=== PATIENT | female | born 1950 | race Caucasian/White ===

== ENCOUNTER 2016-05-31 09:41 | Inpatient (IN) | payer MEDICARE, BC ==
[~2016-05-31] VITALS: Ht 172.7 cm; Wt 133.0 kg
--- NOTE | ~2016-05-31 | OR ---
ADMIT: 05/31/2016 RM/LOC: 528 [facility] MR#: [id number] [address] [address] LIZA ASHLEY [address] [place] [address] Operative/Delivery Room Report SEX: F AGE: 65 : 1950 SURGERY DATE: 06/07/2016 SURGEON: Shane Wiley MD PREPROCEDURE DIAGNOSIS: Small bowel obstruction. POSTPROCEDURE DIAGNOSIS: Small bowel obstruction. PROCEDURE: Exploratory laparotomy with lysis of adhesions and segmental small bowel resection. INDICATIONS: The patient is morbidly obese, 65-year-old female, had multiple previous laparotomies who presents with signs, symptoms, and radiographic evidence of small bowel obstruction. She has failed conservative therapy who presents for exploratory laparotomy. FINDINGS: The patient was taken to the operating room, general endotracheal anesthesia was induced. The patient's abdomen was prepped and draped in normal sterile fashion. The case was begun by making a vertical midline skin incision over the previous midline incision using a #10 blade. Dissection was carried down through the subcutaneous fat, fascia, previously placed mesh, and peritoneum using electrocautery and Doe scissor dissection, this was a very difficult tedious dissection with very dense small bowel adhesions to the undersurface of the anterior abdominal wall. We were able to find clearly the evidence of bowel obstruction right underneath the undersurface of the anterior abdominal wall adjacent to the mesh. As we took this down we could clearly see very obviously decompressed small bowel loops and very distended dilated bowel loops proximally. There was a very tight adhesion band which we took down. There were some enterotomies, serotomies in this area trying to get this taking down. We continued this dissection more proximally until I was convinced there was no further obstructive pathology. Again, this was a very tedious and difficult dissection. There was a small amount of spillage of succus entericus. I elected to remove this small area of adhesional obstruction and serotomy and enterotomy doing a small bowel resection by dividing the small bowel proximally and distally with the 75 JEREMIAH stapler, took down the mesentery between clamps and 0 Vicryl ties. To decompress the proximal small bowel loops, I made an enterotomy in the antimesenteric staple line and a large amount of succus entericus that we suctioned out but it looked basically caused or promoted the obstruction with very large amount of nondigestible food product that were basically just eviscerated and dumped into a bowl as it had brought partially obstructing lesion to a fully obstructing lesion with this nondigestible material. We removed it before, we did our anastomosis and then we created a [id number] stapled anastomosis with a 75 JEREMIAH stapler, closed the common enterotomy with a single firing of the 75 JEREMIAH stapler. We reinforced the apex of this stapled anastomosis with interrupted 3-0 silk seromuscular suture and then I over sewed the common enterotomy staple line with a running 3-0 silk seromuscular suture. I closed ADMIT: 05/31/2016 RM/LOC: 528 [facility] MR#: [id number] [address] [place] [id number] [place] [address] Operative/Delivery Room Report SEX: F AGE: 65 : 1950 down the small mesenteric defect with a running 3-0 silk suture. The small bowel resected segment measured probably only about 8 to 10 cm in total length. I then irrigated the abdomen and pelvis with 3 L of warm saline until the irrigant was nice and clear. There appeared to be no further pathology. I did not dissect out some of the more proximal friendly adhesions as afraid a bowel injury with trying to do this dissection as she had very dense adhesions throughout. I then closed the wound with running #1 PDS looped suture and reinforced this closure with interrupted single stranded [id number] #1 PDS suture. We irrigated the subcu space and closed the skin with interrupted skin neal. The wound was cleaned and dried and dressed. The patient tolerated the procedure without difficulty, was extubated and wheeled to recovery room in good condition. Shane Wiley MD/ ramu JOB #: [id number] CC: Aria Collier, Attending Physician Aria Collier, Family Physician
--- NOTE | ~2016-05-31 | ER ---
ADMIT: 05/31/2016 RM/LOC: 528 [facility] MR#: [id number] [address] [address] KRZYSZTOF ASHLEYE [address] [place], [place] [address] Emergency Room Report SEX: F AGE: 65 : 1950 DATE: 05/31/2016 ADDENDUM: In my previous dictation, I wrote that the patient had a history of having stomach cancer and that was an error. ORTIZ Gant / Mo Dunn MD / ramu JOB #: [id number] CC: Aria Collier MD, Attending Physician Aria Collier MD, Family Physician
--- NOTE | ~2016-05-31 | HP ---
ADMIT: 05/31/2016 RM/LOC: 528 [facility] MR#: [id number] [address] [address] LIZA ASHLEY [address] [place] [address] Pre-OP History and Physical SEX: F AGE: 65 : 1950 DATE OF SERVICE: 05/31/2016 HISTORY OF PRESENT ILLNESS: The patient is a morbidly obese, 65-year-old female, who has had gastric bypass years ago. I believe had it ultimately reversed. She has had hiatal hernia repairs and abdominal wall hernia repairs in the past. She presented with nausea, vomiting, decreased bowel function. Her bowels were working well prior to her admission. PAST MEDICAL HISTORY: Outlined in Mo Marr's note. SURGICAL HISTORY: Outlined in Mo Marr's note. ALLERGIES: OUTLINED IN MO MARR'S NOTE. MEDICATIONS: Outlined in Mo Marr's note. FAMILY HISTORY: Outlined in Mo Marr's note. SOCIAL HISTORY: Outlined in Mo Marr's note. REVIEW OF SYSTEMS: Outlined in Mo Marr's note. PHYSICAL EXAMINATION: GENERAL: She is obese. VITAL SIGNS: Afebrile. HEART: Regular. LUNGS: Clear. ABDOMEN: Soft, distended, and mildly tender to deep palpation with no peripheral edema. No focal neurologic deficits. DIAGNOSTIC DATA: Her CT scan revealed a small bowel obstruction with the distal small bowel transition point. ASSESSMENT AND PLAN: The patient is an obese, 65-year-old female with signs, symptoms, and radiographic evidence consistent with small bowel obstruction. Due to her obesity and previous multiple abdominal surgeries, we are going to place an NG tube, bowel rest, and hope for a conservative management. If no improvement, may ultimately need surgical laparotomy. Shane Wiley MD/ ramu JOB #: [id number] CC: Aria Collier, Attending Physician Aria Collier, Family Physician
--- NOTE | 2016-06-06 10:44 | CO ---
ADMIT: 05/31/2016 RM/LOC: 528 [facility] MR#: [id number] [address] [address] LIZA ASHLEY [address] [place] [address] Consultation SEX: F AGE: 65 : 1950 DATE OF CONSULTATION: 06/01/2016 ATTENDING PHYSICIAN: Aria Collier CONSULTING PHYSICIAN: Sukhdev Call MD REASON FOR CONSULTATION: Acute kidney injury. HISTORY OF PRESENT ILLNESS: The patient is a pleasant 65-year-old female, who presented to the hospital yesterday with a chief complaint of vomiting for about a couple days prior to presentation. She denies any fevers, chills, or rigors. Denies any diarrhea. She had nausea preceding vomiting. She was unable to maintain any oral intake, had been eating poorly for the last couple days. She had also noticed a decreased urine output, but no other urinary complaints. She has a history of hypertension, for which she was on a renin- angiotensin blockade. She was also taking meloxicam for her low back pain. On admission, was noted to have a creatinine of 2.2 that was elevated to 2.8 and then to 3.0 this morning. She is making some urine now. Otherwise, she denies any cardiac or respiratory complaints. REVIEW OF SYSTEMS: A complete review of systems is negative in detail except as mentioned in history of present illness above. PAST MEDICAL HISTORY: 1. Hypertension. 2. Hypothyroidism post thyroidectomy. 3. 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 4. Multiple hernia surgeries. 5. Thyroidectomy. 6. Multiple knee surgeries. 7. Carpal tunnel surgery. MEDICATIONS: Reviewed and addressed in the chart. ALLERGIES: DARVON AND DARVOCET-N. SOCIAL HISTORY: Lives alone. Former smoker. Quit smoking several years ago. Occasional alcohol use. No recreational drug use. FAMILY HISTORY: No family history of chronic kidney disease or renal replacement therapy. Hypertension and diabetes run in her family. PHYSICAL EXAMINATION: VITAL SIGNS: Temperature 98.4 Fahrenheit, pulse 73, blood pressure 125/80, and saturating 94% on room. GENERAL: She is comfortable. HEENT: Head is nontraumatic and normocephalic. No conjunctival pallor. Dry mucosa. NECK: Supple without any JVD. CHEST: Clear to auscultation. ADMIT: 05/31/2016 RM/LOC: 528 [facility] MR#: [id number] [address] [address] LIZA ASHLEY [address] [place] [address] Consultation SEX: F AGE: 65 : 1950 CVS: Regular rate and rhythm. S1, S2 heard. No rubs, murmurs, or gallops. ABDOMEN: Soft. She has tenderness in the right lower quadrant. EXTREMITIES: No edema. SKIN: No rash or nodules. NEUROLOGIC: Alert, awake, and oriented x3, is able to move all her extremities. PSYCHIATRIC: Affect and memory within normal limits. MUSCULOSKELETAL: Major joints within normal limits. EXTREMITIES: Within normal limits. LABORATORY DATA: Reviewed. Trend of serum creatinine as outlined in HPI above. Her sodium was 142, potassium 4.4, CO2 of 24, creatinine 3.0, calcium 7.5, magnesium 2.0. Her hemoglobin was 11.5. Urinalysis with 1+ protein, negative blood, and trace leukocyte esterase. She had hyaline casts in her urine. On imaging, she had left renal atrophy, but no other obstructive changes. ASSESSMENT/PLAN: Acute kidney injury - likely prerenal in etiology with a component of ischemic/nephrotoxic acute tubular necrosis. Allergic interstitial nephritis secondary to REGALADO-2 inhibitors is another possibility. Her baseline serum creatinine is unclear and it was 1.2 in the year 2009. I will obtain her recent records from her PCPs office to determine her baseline serum creatinine. For the time being, continue IV fluids and supportive renal care. Hold NSAIDs, REGALADO-2 inhibitors, or renin-angiotensin blockade. Avoid nephrotoxins such as IV contrast or Fleets enemas. Monitor kidney function, electrolytes, and hemodynamics moving forward. Thank you for this consultation. Please do not hesitate to contact me with any questions about her care. Sukhdev Call MD/ ramu JOB #: [id number] CC: Aria Collier, Attending Physician Aria Collier, Family Physician
--- NOTE | 2016-06-08 13:25 | HP ---
ADMIT: 05/31/2016 RM/LOC: 528 [facility] MR#: [id number] 2620 [facility] [address] [place] [address] LIZA ASHLEY [address] [place] [address] History and Physical SEX: F AGE: 65 : 1950 DATE OF SERVICE: CHIEF COMPLAINT: Vomiting. HISTORY OF PRESENT ILLNESS: The patient is a 65-year-old white female, normally cared for by Dr. Ariadna Zendejas, was admitted as a city call patient to our service. She presented to the emergency room with intractable vomiting for about 36 hours. She says symptoms started on 05/29/2016 in the late afternoon. She started getting nauseated and then vomited, and she said she filled up to 2 ice cream buckets full of emesis that night. Did get just a little better through the day yesterday, but she still was unable to keep anything down, but would vomit occasionally, just bile. She has been getting some abdominal pain as well though it is a little better just after a little morphine in the emergency room. She says she has never had symptoms like this before, but has had numerous abdominal surgeries in the past with some complications from those. No history of prior episodes of bowel obstruction though PAST MEDICAL HISTORY: The patient has chronic hypertension and hypothyroidism after undergoing a thyroidectomy for thyroiditis. She also has chronic lumbar spondylosis. PAST SURGICAL HISTORY: Include thyroidectomy in 2009, appendectomy, cholecystectomy, gastric bypass followed by doing the bypass in 1984 and then she has had 5 knee scopes, the right total knee arthroplasty, carpal tunnel x2, a colonoscopy in 2013 showing a tubular adenoma, hemorrhoidectomy, and numerous hernia repairs. Her latest hernia was complicated by a large seroma that had to be drained by Interventional Radiology in March. It did completely resolve though. MEDICATIONS: 1. Levothyroxine 200 mcg daily. 2. Verapamil 120 mg daily. 3. Meloxicam 15 mg daily. 4. Valsartan 320 mg daily. 5. Vitamin B12, 500 mcg daily. 6. Probiotic 2 capsules daily. ALLERGIES: PROPOXYPHENE. SOCIAL HISTORY: The patient is a former smoker with rare alcohol use. FAMILY HISTORY: Significant for heart disease, cancer, hypertension, diabetes. REVIEW OF SYSTEMS: CONSTITUTIONAL: Has had some mild weakness today. No fevers or chills. No head, cold symptoms. CARDIAC: No chest pain or palpitations. RESPIRATORY: [place] a little short of breath today with vomiting. No cough. ADMIT: 05/31/2016 RM/LOC: 528 [facility] MR#: [id number] [facility] [address] [address] LIZA ASHLEY [address] [place] [address] History and Physical SEX: F AGE: 65 : 1950 GI: As above. : Very little urine output even after fluid rehydration in the emergency room and here on the floor. Urine has been dark, but no dysuria or hematuria. MUSCULOSKELETAL: Does have chronic low back pain, usually it is fairly well controlled with meloxicam only. No other major medical issues and she denies any other symptoms at this time. PHYSICAL EXAMINATION: VITAL SIGNS: The patient is afebrile, blood pressure 123/66, respirations 16, pulse 89, sats 95% on room air. GENERAL: She is alert and oriented x3, and in no acute distress, is pleasant and talkative and does have a little emesis on her bag at her bedside that is dark and foul smelling, not black though. HEENT: Head is atraumatic, normocephalic. Sclerae are clear. Pupils are round and reactive. Nares are patent. Oropharynx looks moist and without lesions. NECK: Supple with no lymphadenopathy or thyromegaly. HEART: Regular in rate and rhythm without murmurs. LUNGS: Sound clear to auscultation bilaterally. ABDOMEN: Soft, nondistended, and just minimally tender in the right lower quadrant, but no rebound or guarding or masses are noted. Numerous scars are noted. EXTREMITIES: Have no edema. She has no focal neurologic deficits. No skin rashes. LABORATORY DATA: White count was 5.1, hemoglobin 14.4, platelets 230, BUN 58, creatinine 2.2. IMAGING: CT without contrast of the abdomen and pelvis shows early partial small bowel obstruction. ASSESSMENT: 1. Small bowel obstruction with intractable vomiting. 2. Dehydration. 3. Acute renal failure. 4. Multiple prior abdominal surgeries. 5. Hypothyroidism. 6. Hypertension. ADMIT: 05/31/2016 RM/LOC: 528 [facility] MR#: [id number] [address] [address] [place] [address] History and Physical SEX: F AGE: 65 : 1950 PLAN: She is n.p.o., and we will turn up her IV fluid rate until she is voiding well, so we will do strict I's and O's. We will recheck a BMP and follow her renal function closely, but it was normal the beginning of March, so likely just acute from this dehydration and/or medications. If not resolving with fluids, we will get Nephrology involved. We will hold her calcium channel dianne, NSAID, and ARB. We will hold off on NG for now as she would like to avoid that, but if vomiting is not resolving or getting worse, may need to consider that. We will treat her nausea with Zofran for now and she has some morphine, she can use as needed. Surgery will follow along closely and if not resolving, may need to consider surgical intervention. Aria Collier MD/ armu JOB #: [id number] CC: Aria Collier, Attending Physician Aria Collier, Family Physician
[2016-06-16] MEDS ORDERED: DIOVAN320 MG PO (13:41)
[2016-06-16] MEDS ORDERED: LEVOTHYROXINE200 MCG PO (13:41)
[2016-06-16] MEDS ORDERED: ISOPTIN DPS120 MG PO (13:41)
[2016-06-16] MEDS ORDERED: VITAMIN B-12500 MCG PO (13:41)
[2016-06-16] MEDS ORDERED: MOBIC15 MG PO (13:41)
[2016-06-16] MEDS ORDERED: MIRALAX PACKET17 GM PO (13:42)
[2016-06-16] MEDS ORDERED: PROBIOTIC1 EAC1 PO (13:42)
[2016-06-16] MEDS ORDERED: PROTONIX40 MG PO (13:43)
[2016-06-16] MEDS ORDERED: REGLAN-DPS10 MG PO (13:43)
[2016-06-16] MEDS ORDERED: MILK OF MAGNESI10 ML PO (13:43)
[2016-06-16] MEDS ORDERED: HYDROCODON-ACE1 EAC4 PO (13:43)
[2016-06-16] MEDS ORDERED: TYLENOL DPS325 MG PO (13:44)
--- NOTE | 2016-06-27 08:53 | CO ---
ADMIT: 05/31/2016 RM/LOC: 528 [facility] MR#: [id number] 2620 [facility] [address] [place] [phone] JYOTI ASHLEY [address] [place] [address] Consultation SEX: F AGE: 65 : 1950 DATE OF CONSULTATION: 05/31/2016 ATTENDING PHYSICIAN: Aria Collier CONSULTING PHYSICIAN: Shane Wiley MD REASON FOR CONSULTATION: Small bowel obstruction. HISTORY OF PRESENT ILLNESS: Jyoti is a very pleasant, 65-year-old female, who presents with a three-day onset of abdominal pain, bloating, and nausea with emesis. She has multiple times emesis to the point where she was able to fill 3 large ice cream containers of brown fecal-smelling emesis. Her abdominal pain is throughout her abdomen and her last bowel movement was yesterday morning. She has not passed any flatus since then. She denies any dark or bloody stools, diarrhea, or constipation at that time or any hematemesis. Of note, the patient has had multiple abdominal surgeries. Please see below. PAST MEDICAL HISTORY: Significant for hypothyroidism, hypertension, and chronic pain. PAST SURGICAL HISTORY: 1. Drain placement for seroma in approximately February of 2016. 2. Multiple what the patient believes is hiatal hernia surgeries performed in [place]. She believes 3 of these were done with the first one being in November of 2014 and the other 2 were done sometimes in 2015. At that time, it was noted that the bowel was "twisted" into the hernia. 3. Gastric bypass in the 70s with reversal surgery 3 years later. 4. Cholecystectomy. 5. Appendectomy. 6. Numerous knee scopes and knee surgeries. ALLERGIES: NO KNOWN DRUG ALLERGIES. MEDICATIONS: Well documented in chart. FAMILY HISTORY: Noncontributory. SOCIAL HISTORY: The patient is occasional alcohol user but denies tobacco or illicit drug use. REVIEW OF SYSTEMS: HEAD: The patient has noticed some dizziness and lightheadedness for the last couple of days. She denies any headaches or near syncopal episodes. The rest of a comprehensive 10-point review of systems was performed and all other systems are negative. PHYSICAL EXAMINATION: GENERAL: The patient is in no acute distress. She is ADMIT: 05/31/2016 RM/LOC: 528 [facility] MR#: [id number] [address] [address] JYOTI ASHLEY [address] [place] [address] Consultation SEX: F AGE: 65 : 1950 alert and oriented. HEENT: Head is normocephalic and atraumatic. EOMS are intact. Conjunctivae are free of icterus, erythema, pallor. Pinnae, free of deformities. Nose is midline. No tracheal deviation. NECK: Supple. SKIN: Negative for jaundice, clubbing, edema, pallor, or cyanosis. LUNGS: Clear to auscultation bilaterally. Normal respiratory effort. HEART: Distal pulses intact. Regular rate and rhythm. ABDOMEN: Distended but soft. Distal bowel sounds noted upon auscultation. NEURO: Grossly intact. DIAGNOSTIC IMAGING: CT of abdomen and pelvis revealed small-bowel obstruction with transition point in the distal small bowel with stool burden in the colon. ASSESSMENT: Small bowel obstruction. PLAN: Given the patient's history of numerous abdominal operations, has not had the time to proceed with any exploratory laparotomies. Because of this, we will try NG decompression and other conservative measures. However, if this does not work, we will be forced to proceed with surgery at a later time. The patient is in agreement of this plan, had all their questions answered, and would like to proceed. I will notify Dr. Wiley of this consult and we will see how she does tonight. Thank you for the consultation on this patient. ORTIZ Cerna / Shane Wiley MD / ramu JOB #: [id number] CC: Aria Collier, Attending Physician Aria Collier, Family Physician
--- NOTE | 2016-07-01 06:29 | DS ---
ADMIT: 05/31/2016 RM/LOC: 528 [facility] MR#: [id number] 2620 [facility] [address] [place] [address] LIZA ASHLEY [address] [place] [address] Discharge Summary SEX: F AGE: 65 : 1950 ADMISSION DATE: 05/31/2016 DISCHARGE DATE: 06/15/2016 FINAL DIAGNOSES: 1. Small bowel obstruction. 2. Multiple prior abdominal surgeries. 3. Dehydration. 4. Acute renal failure. 5. Hypothyroidism. 6. Hypertension. 7. Obesity. 8. Mild iron-deficiency anemia, chronic. 9. Acute cystitis. 10.Heme (Hemoccult) positive stool. 11.Postop ileus. PROCEDURES: Laparotomy with lysis of adhesions and small-bowel resection on 06/07/[address] Wiley. CONSULT: General Surgery. REASON FOR ADMISSION: The patient is a 65-year-old white female who presented to the emergency room with abdominal distention, nausea, vomiting, and pain. She had had multiple prior abdominal surgeries but has been having problems for about two days prior to admission with these symptoms. On exam, had a distended abdomen, mildly tender throughout but no bowel sounds are present, and a CT showed early partial small bowel obstruction. HOSPITAL COURSE: The patient was admitted and initially made n.p.o., and Surgery was consulted. We did give her quite a bit of IV fluids, as her creatinine was up to 2.2 from her baseline of 1. She continued to have nausea though. Her creatinine bumped overnight to 3.0, so Nephrology was consulted and fluids were continued. She did not have much improvement though in her symptoms so on the evening of 06/01/2016 had an NG-tube placed and did suction a lot of gastric contents. She had a heme-positive stool as well. By the , still was not feeling much better and still getting a lot out the NG tube, so a PICC line was placed and TPN was started. She was also started on a clonidine patch, as her blood pressure was increasing. Over the weekend, she continued to rest her gut. Her creatinine did normalize. Finally by the , she continued to have difficulty, so was consented for a laparotomy and underwent that later in the day. Did notice a significant obstructed area with backup of gastric content proximal to that. Those were all suctioned out and did require a small segment of small bowel to be resected. After surgery, she continued to have slow improvement. Finally on the toward the evening, began passing gas and having bowel movements and felt a great deal better. Her diet was advanced over the next couple of days, and by the she was tolerating a regular diet without any nausea or vomiting. She was having normal bowel movements that were on the looser side, but no bloody stools were noted. She had tolerated Lovenox for DVT prophylaxis with no drop ADMIT: 05/31/2016 RM/LOC: 528 [facility] MR#: [id number] [address] [place] [phone] LIZA ASHLEY [address] [place] [address] Discharge Summary SEX: F AGE: 65 : 1950 in her hemoglobin and no further black tarry stools or anything that was concerning were noted. Was felt safe to discharge on 06/15/2016. DISCHARGE INSTRUCTIONS: The patient will be discharged to home with followup with both Dr. Ariadna Zendejas, her regular primary care provider, and Surgery in the next week or two. Discharge medications will include: 1. Levothyroxine 200 mcg daily. 2. Verapamil 120 mg daily. 3. Meloxicam 15 mg daily. 4. Valsartan 320 mg daily. 5. Vitamin B12 500 mcg daily. 6. She can use Tylenol as needed for pain. Aria Collier MD/ ras JOB #: [id number] CC: Aria Collier MD, Attending Physician Aria Collier MD, Family Physician
--- NOTE | 2016-07-14 18:52 | ER ---
ADMIT: 05/31/2016 RM/LOC: ER [facility] MR#: [id number] [facility] [address] [place] [id number] LIZA ASHLEY [address] [place] [address] Emergency Room Report SEX: F AGE: 65 : 1950 ADDENDUM ADDED: JOB #[id number]; 07/06/2016 00:27:22 ORTIZ GANT DATE: 05/31/2016 ADDENDUM: This patient comes into the ER because she has been vomiting for the last 3 days, and today, she feels like what she is vomiting smells like fecal matter. She has epigastric pain. She has had several surgeries to repair a hernia, and then she had cancer in her stomach that was repaired. She has also had hiatal hernia repair. The patient states it is a pain and seems to come and go, and her belly feels bloated. On physical exam, she is tender in the epigastric area and I do hear high-pitched abdominal sounds. Her creatinine was elevated at 2.2, and on her two previous visits she had a normal creatinine as well. She was given Zofran and morphine in the ER which did help her nausea and pain. I spoke with Dr. Collier, who was on-call for Dr. Zendejas, and she will be admitted by her. DIAGNOSES: 1. Small bowel obstruction. 2. Renal insufficiency. Please see my T-sheet. ADDENDUMJob #[id number]; 07/06/2016 00:27:22: In my previous dictation, (above) I wrote that the patient had a history of having stomach cancer and that was an error. ORTIZ Gant / Mo Dunn MD / ramu JOB #: [id number] CC: Mo Dunn MD, Attending Physician UNKNOWN, Family Physician ADDENDUM ADDED: JOB #[id number]; 07/06/2016 00:27:22 ORTIZ GANT
== END 2016-06-15 15:02 | disposition home or self-care (01) | DRG 330 ==
LOC: ER 09:41 → 5MS 13:05
PROVIDERS: ADMIT Family Medicine
PROC: 02HV33Z Insertion of Infusion Device into Superior Vena Cava, Percutaneous Approach (ICD-10-PCS; 2016-06-03)
PROC: 3E0436Z Introduction of Nutritional Substance into Central Vein, Percutaneous Approach (ICD-10-PCS; 2016-06-03)
PROC: 0DB80ZZ Excision of Small Intestine, Open Approach (ICD-10-PCS; principal; 2016-06-07)
PROC: 0DN80ZZ Release Small Intestine, Open Approach (ICD-10-PCS; principal; 2016-06-07)
DX: K56.5 Intestinal adhesions [bands] with obstruction (postinfection) (principal); N17.9 Acute kidney failure, unspecified; Z68.41 Body mass index [BMI] 40.0-44.9, adult; K91.3 Postprocedural intestinal obstruction; N30.00 Acute cystitis without hematuria; E86.0 Dehydration; I10 Essential (primary) hypertension; E66.01 Morbid (severe) obesity due to excess calories; E89.0 Postprocedural hypothyroidism; K29.70 Gastritis, unspecified, without bleeding; D53.9 Nutritional anemia, unspecified; M47.816 Spondylosis without myelopathy or radiculopathy, lumbar region; Z98.84 Bariatric surgery status; Z96.651 Presence of right artificial knee joint; Z87.891 Personal history of nicotine dependence